=== PATIENT | female | born 1940 | race Caucasian/White ===

== ENCOUNTER 2018-03-03 15:10 | Emergency (ER) | payer OTHER, MEDICAID ==
[~2018-03-03] VITALS: Ht 172.7 cm; Wt 65.0 kg
[2018-03-03 15:35] VITALS: BP 127/61; PULSE 82; RESP 16; TEMP 98.2; O2SAT 97
--- NOTE | 2018-03-03 15:52 | PD ---
HPI Chief Complaint: Psychiatric Symptoms Time Seen by Provider: 15:37 Travel History International Travel<30 days: No Contact w/Intl Traveler<30days: No Traveled to known affect area: No History of Present Illness HPI This is a 77-year-old female who presents under a Brumfield act initiated at [facility]. She was medically cleared at [facility] and then transferred here for psychiatric evaluation. According to her paperwork the patient has had 3 ER visits in the past 4 days and today she told the physician that she saw her daughter kissing her ex- in the living room which caused her anxiety. Reportedly her daughter is not living in [place] at this time and therefore it is impossible. It was felt that she was having hallucinations as well. The patient is currently awake, alert. She does not recall why she was being seen at [facility]. She does report a history of rectal and uterine and bladder prolapse requiring surgery in March and therefore she currently has an indwelling Grijalva catheter. She has no medical complaints at this time. [facility] Past Medical History Cardiovascular Problems: Yes (HTN) ?: Not Social History Alcohol Use: No Tobacco Use: No Allergies-Medications (Allergen,Severity, Reaction): Coded Allergies: No Known Allergies (Unverified , 03/03/18) Reported Meds & Prescriptions Reported Meds & Active Scripts Active Reported Protonix (Pantoprazole Sodium) 40 Mg Tab 40 Mg PO BID Coreg (Carvedilol) 6.25 Mg Tab 6.25 Mg PO BID Ativan (Lorazepam) 1 Mg Tab 1 Mg PO Q8H PRN Review of Systems Except as stated in HPI: all other systems reviewed are Neg Physical Exam Narrative GENERAL: Pleasant well-developed well-nourished female no acute distress SKIN: Warm and dry. HEAD: Atraumatic. Normocephalic. EYES: Pupils equal and round. No scleral icterus. No injection or drainage. ENT: No nasal bleeding or discharge. Mucous membranes pink and moist. NECK: Trachea midline. No JVD. CARDIOVASCULAR: Regular rate and rhythm. No murmur appreciated. RESPIRATORY: No accessory muscle use. Clear to auscultation. Breath sounds equal bilaterally. GASTROINTESTINAL: Abdomen soft, non-tender, nondistended. Hepatic and splenic margins not palpable. Grijalva catheter bag noted. MUSCULOSKELETAL: No obvious deformities. NEUROLOGICAL: Awake and alert. No obvious cranial nerve deficits. Motor grossly within normal limits. Normal speech. Alert to person and place. She knows that the month is February but does not recall the year. PSYCHIATRIC: Appropriate mood and affect. Insight and judgment appear limited. Data Data Last Documented VS Vital Signs Date Time Temp Pulse Resp B/P (MAP) Pulse Ox O2 Delivery O2 Flow Rate FiO2 03/04/18 07:30 83 20 156/70 (98) 96 Room Air 03/03/18 15:35 98.2 Orders Orders Lorazepam Inj (Ativan Inj) (03/03/18 17:15) Diet Regular Basic (03/03/18 Dinner) Psych Screen (03/03/18 19:17) Lorazepam (Ativan) (03/03/18 23:30) Lorazepam (Ativan) (03/04/18 04:00) Diet Regular Basic (03/04/18 Breakfast) Ed Discharge Order (03/04/18 09:36) Acetaminophen (Tylenol) (03/04/18 09:45) MDM Medical Decision Making Medical Screen Exam Complete: Yes Emergency Medical Condition: Yes Medical Record Reviewed: Yes Differential Diagnosis Acute psychosis, adjustment reaction, dementia, delirium, encephalitis, UTI Narrative Course This is a 77-year-old female who is placed under Brumfield act at [facility] and sent here for psychiatric evaluation. She was medically cleared at [facility]. Mental health screening discussed with the patient. Psychiatric screen ordered. The Brumfield act has been lifted by psychiatry. She has no medical issues that would warrant further hospitalization. She is stable for discharge. Diagnosis Primary Impression: Medical clearance for psychiatric admission Med/Other Pt SpecificInfo: No Change to Meds Disposition: 01 DISCHARGE HOME Condition: Stable Jacob Saleh Mar 03, 2018 15:51
[2018-03-03] MEDS ORDERED: PROT40TA PO (16:05)
[2018-03-03] MEDS ORDERED: CARV6.25 PO (16:05)
[2018-03-03] MEDS ORDERED: LORA-474 PO (16:05)
[2018-03-03] MEDS ORDERED: LORazepam 2 MG/ML VIAL IM ONE (17:15)
[2018-03-03 17:29] VITALS: BP 109/63; PULSE 76; RESP 16; O2SAT 96
[2018-03-03 18:27] VITALS: BP 111/66; PULSE 73; RESP 18; O2SAT 98
[2018-03-03 23:28] VITALS: BP 127/63; PULSE 75; RESP 16; O2SAT 96
[2018-03-03] MEDS ORDERED: LORazepam 1 MG TAB PO ONE (23:30)
[2018-03-04] MEDS ORDERED: LORazepam 0.5 MG TAB PO ONE (04:00)
[2018-03-04 07:30] VITALS: BP 156/70; PULSE 83; RESP 20; O2SAT 96
[2018-03-04] MEDS ORDERED: ACETAMINOPHEN 500 MG CPLT PO ONE (09:45)
--- NOTE | 2018-03-04 13:34 | PD.PSY.CON ---
Provisional Diagnosis Admission Date History of Present Illness Service Psychiatry Consult Requested By ER Reason for Consult Psychiatry Primary Care Physician Willie Manuel M.D. HPI This is a 77-year-old woman, domiciled with her in the [place] , retired, without no previous psychiatric history, no previous suicidal attempts, who [facility] and then transferred here for psychiatric evaluation. According to her paperwork the patient has had 3 ER visits in the past 4 days and today she told the physician that she saw her daughter kissing her ex- in the living room which caused her anxiety. Reportedly her daughter is not living in [place] at this time and therefore it is impossible. It was felt that she was having hallucinations as well. The patient is currently awake, alert. She does not recall why she was being seen at [facility]. She does report a history of rectal and uterine and bladder prolapse requiring surgery in March and therefore she currently has an indwelling Grijalva catheter. She has no medical complaints at this time. On psychiatric evaluation patient is calm, cooperative and pleasant. Patient reports feeling okay, she has been under stress due to her bladder prolapse. She denies suicidal enemas ideation, she denies visual and auditory hallucinations. She is fully oriented 3. Past Family Social History Coded Allergies: No Known Allergies (Unverified , 03/03/18) Reported Medications Pantoprazole (Protonix) 40 Mg Tab, 40 MG PO BID for Reflux, #30 TAB 0 Refills 03/03/18 Carvedilol (Coreg) 6.25 Mg Tab, 6.25 MG PO BID, #60 TAB 0 Refills 03/03/18 Lorazepam (Ativan) 1 Mg Tab, 1 MG PO Q8H Y for ANXIETY AND/OR AGITATION, TAB 0 Refills 03/03/18 Physical Exam Vital Signs Vital Signs Date Time Temp Pulse Resp B/P (MAP) Pulse Ox O2 Delivery O2 Flow Rate FiO2 03/04/18 13:10 03/04/18 07:30 83 20 96 Room Air 03/03/18 15:35 98.2 I/O 03/04/18 03/04/18 03/05/18 08:00 16:00 00:00 Output Total 625 ml Balance -625 ml Mental Status Examination Appearance: Appropriate Consciousness: Alert Orientation: x4 Motor Activity: Normal gait Speech: Unremarkable Language: Adequate Fund of Knowledge: Adequate Attention and Concentration: Adequate Memory: Unremarkable Mood: Appropriate Affect: Appropriate Thought Process & Associations: Intact Thought Content: Appropriate Hallucination Type: None Delusion Type: None Suicidal Ideation: No Suicidal Plan: No Suicidal Intention: No Homicidal Ideation: No Homicidal Plan: No Homicidal Intention: No Insight: Adequate Judgment: Adequate Assessment & Plan Problem List: (1) Adjustment disorder with depressed mood ICD Codes: F43.21 - Adjustment disorder with depressed mood Assessment & Plan: The patient does not present any neuropsychiatric symptoms, such as depression, anxiety, carlos or psychosis, that require an immediate psychiatric intervention. Patient denies suicidal and was ideation, she denies visual and auditory hallucinations. Patient is psychiatrically cleared to continue medical care. Brumfield act will be lifted Assessment & Plan Estimated LOS: Feliciano Quispe MD Mar 04, 2018 13:34
== END 2018-03-04 13:32 | disposition home or self-care (01) ==
LOC: NEPD 15:10
DX: F43.21 Adjustment disorder with depressed mood (principal); I10 Essential (primary) hypertension
CPT/HCPCS: 96372; 99284; J2060

== ENCOUNTER 2019-01-17 16:01 | Observation (INO) ==
[2019-01-17 16:23] VITALS: TEMP 98.3
[2019-01-17 18:09] LABS: Baso % (Auto) 0.5 % (0.0-2.0); Eos # (Auto) 0.3 th/mm3 (0.0-0.4); Eos % (Auto) 5.8 % (0.0-4.0); Hematocrit 27.4 % (35.0-46.0); Hemoglobin 8.5 gm/dL (11.6-15.3); Lymph # (Auto) 1.2 th/mm3 (1.0-4.8); Lymph % (Auto) 24.6 % (9.0-44.0); Mean Corpuscular HGB Conc 31.2 % (32.0-36.0); Mean Corpuscular Hemoglobin 25.7 pg (27.0-34.0); Mean Corpuscular Volume 82.3 fL (80.0-100.0); Mean Platelet Volume 7.3 fL (7.0-11.0); Mono # (Auto) 0.3 th/mm3 (0.0-0.9); Mono % (Auto) 6.6 % (0.0-8.0); Neut # (Auto) 3.1 th/mm3 (1.8-7.7); Neut % (Auto) 62.5 % (16.0-70.0); Platelet Count 254 th/mm3 (150-450); Red Blood Count 3.33 mil/mm3 (4.00-5.30); Red Cell Distribution Width 21.4 % (11.6-17.2); White Blood Count 4.9 th/mm3 (4.0-11.0)
[2019-01-17 18:19] LABS: Chloride 104 meq/L (98-107); Potassium 4.3 meq/L (3.5-5.1); Sodium 136 meq/L (136-145)
[2019-01-17 18:22] LABS: Calcium 8.2 mg/dL (8.5-10.1)
[2019-01-17 18:23] LABS: Albumin 3.7 g/dL (3.4-5.0); Anion Gap 5 meq/L (5-15); Blood Urea Nitrogen 25 mg/dL (7-18); Glucose,Random 81 mg/dL (74-106)
[2019-01-17 18:26] LABS: Alanine Aminotransferase 13 U/L (10-53); Aspartate Aminotransferase 12 U/L (15-37); Glomerular Filtration Rate 40 mL/min (>89)
[2019-01-17 18:28] LABS: Total Protein 7.2 g/dL (6.4-8.2)
[2019-01-17 18:29] LABS: Alkaline Phosphatase 86 U/L (45-117)
[2019-01-17 18:38] LABS: Creatine Kinase 89 U/L (26-192)
--- NOTE | 2019-01-17 18:54 | ED ---
HPI General Chief complaint: Urogenital-Female Stated complaint: Trouble Urinating/Pain/Pressure/Seen yest Time Seen by Provider: 01/17/19 17:00 History of Present Illness HPI narrative: 78 female history of CHF here for evaluation of generalized weakness. Patient was here yesterday and was diagnosed with UTI and is currently taking Keflex day 2. She had low hemoglobin yesterday, she is back today because of feeling tired, lethargic and weak. She has no chest pain or shortness of breath. She has no neurological symptoms, denies any focal weakness or sensory loss. No other complaints. Related Data Home Medications Medication Instructions Recorded Confirmed carvedilol [Coreg] 6.25 mg PO BID 01/12/19 01/17/19 phenazopyridine [Pyridium] 100 mg PO TID 01/12/19 01/17/19 Previous Rx's Medication Instructions Recorded sulfamethoxazole-trimethoprim 1 tab PO BID 7 Days #14 tab 01/12/19 [Bactrim DS] cephalexin [Keflex] 500 mg PO Q6H 7 Days #28 cap 01/16/19 Allergies Allergy/AdvReac Type Severity Reaction Status Date / Time No Known Allergies Allergy Verified 01/17/19 16:23 Review of Systems ROS: all other systems reviewed are negative [facility] Social History Social History Substance History: No History of Abuse Smoking Status: Former smoker How Often Do You Have a Drink Containing Alcohol: Never Recent Travel in [facility] within the Last 8 Weeks: No Recent Out of Country Travel within the Last 8 Weeks: No Immunization History Tetanus Immunization: <5 Years Exam Narrative Exam Narrative: GENERAL: Alert and x3 no acute distress. SKIN: Focused skin assessment warm/dry. HEAD: Atraumatic. Normocephalic. EYES: Pupils equal and round. No scleral icterus. No injection or drainage. ENT: No nasal bleeding or discharge. Mucous membranes pink and moist. NECK: Trachea midline. No JVD. CARDIOVASCULAR: Regular rate and rhythm. No murmur appreciated. RESPIRATORY: No accessory muscle use. Clear to auscultation. Breath sounds equal bilaterally. GASTROINTESTINAL: Abdomen soft, non-tender, nondistended. Hepatic and splenic margins not palpable. MUSCULOSKELETAL: No obvious deformities. No clubbing. No cyanosis. No edema. NEUROLOGICAL: Awake and alert. No obvious cranial nerve deficits. Motor grossly within normal limits. Normal speech. PSYCHIATRIC: Appropriate mood and affect; insight and judgment normal. Course Initial Documented Vital Signs Temperature 98.3 F 01/17/19 16:18 Pulse Rate 58 L 01/17/19 16:18 Respiratory Rate 16 01/17/19 16:18 Blood Pressure 150/66 H 01/17/19 16:18 Pulse Oximetry 93 L 01/17/19 16:18 Last Documented Vital Signs Temperature 98.3 F 01/17/19 16:18 Pulse Rate 55 L 01/17/19 19:00 Respiratory Rate 18 01/17/19 19:00 Blood Pressure 161/53 H 01/17/19 19:00 Pulse Oximetry 94 L 01/17/19 19:00 Medical Decision Making MDM Narrative Medical decision making narrative: 78 female here for evaluation of generalized weakness and feeling easily tired. She was here yesterday for UTI and currently on day 2 of Keflex p.o. Hemoglobin today is 8.5, I tried to do Hemoccult but there was no sample in the rectum. She had colonoscopy done within the last 2 years and she states it was normal. She has hypoxia here in the ER. She has history of CHF. She has elevated d-dimer. She declined a CTA of the chest and wants to go home to be with her as she flew all the way down from [place] to see him. I explained to the patient the possibility of having PE and that it is very dangerous to leave without finishing the workup but patient declined and wants to go home. Patient will sign AMA. AMA: The risks of leaving against medical advice without further evaluation treatment were discussed with the patient. These risks include cardiac dysfunction, cardiac dysrhythmia, possible heart attack, possible stroke or . The patient indicated understanding of these risks and appeared to have the capacity to make this decision. Medical Screen Exam Complete: Yes Emergency Medical Condition: Yes Lab Data Result diagrams: 01/17/19 17:47 01/17/19 17:47 Lab Results 01/17/19 01/17/19 01/17/19 Range/Units 17:47 17:47 17:47 CBC w Diff Auto diff final WBC 4.9 (4.0-11.0) th/mm3 RBC 3.33 L (4.00-5.30) mil/mm3 Hgb 8.5 L (11.6-15.3) gm/dL Hct 27.4 L (35.0-46.0) % MCV 82.3 (80.0-100.0) fL MCH 25.7 L (27.0-34.0) pg MCHC 31.2 L (32.0-36.0) % RDW 21.4 H (11.6-17.2) % Plt Count 254 (150-450) th/mm3 MPV 7.3 (7.0-11.0) fL Neut % (Auto) 62.5 (16.0-70.0) % Lymph % (Auto) 24.6 (9.0-44.0) % [place] % (Auto) 6.6 (0.0-8.0) % Eos % (Auto) 5.8 H (0.0-4.0) % Baso % (Auto) 0.5 (0.0-2.0) % Neut # (Auto) 3.1 (1.8-7.7) th/mm3 Lymph # (Auto) 1.2 (1.0-4.8) th/mm3 [place] # (Auto) 0.3 (0.0-0.9) th/mm3 Eos # (Auto) 0.3 (0.0-0.4) th/mm3 Baso # (Auto) 0.0 (0.0-0.2) th/mm3 WBC Differential . Differential Comment . APTT (23.4-31.7) sec D-Dimer Quant (PE/DVT) (0.00-0.50) mg/L FEU Sodium (136-145) meq/L Potassium (3.5-5.1) meq/L Chloride (98-107) meq/L Carbon Dioxide (21.0-32.0) meq/L Anion Gap (5-15) meq/L BUN (7-18) mg/dL Creatinine (0.50-1.00) mg/dL Estimated GFR (>89) mL/min Random Glucose (74-106) mg/dL Calcium (8.5-10.1) mg/dL Total Bilirubin (0.2-1.0) mg/dL Direct Bilirubin 0.1 (0.0-0.2) mg/dL AST (15-37) U/L ALT (10-53) U/L Alkaline Phosphatase (45-117) U/L Total Creatine Kinase (26-192) U/L Troponin I (0.02-0.05) ng/mL B-Natriuretic Peptide 309 H (0-100) pg/mL Total Protein (6.4-8.2) g/dL Albumin (3.4-5.0) g/dL 01/17/19 01/17/19 01/17/19 Range/Units 17:47 17:47 17:47 CBC w Diff WBC (4.0-11.0) th/mm3 RBC (4.00-5.30) mil/mm3 Hgb (11.6-15.3) gm/dL Hct (35.0-46.0) % MCV (80.0-100.0) fL MCH (27.0-34.0) pg MCHC (32.0-36.0) % RDW (11.6-17.2) % Plt Count (150-450) th/mm3 MPV (7.0-11.0) fL Neut % (Auto) (16.0-70.0) % Lymph % (Auto) (9.0-44.0) % [place] % (Auto) (0.0-8.0) % Eos % (Auto) (0.0-4.0) % Baso % (Auto) (0.0-2.0) % Neut # (Auto) (1.8-7.7) th/mm3 Lymph # (Auto) (1.0-4.8) th/mm3 [place] # (Auto) (0.0-0.9) th/mm3 Eos # (Auto) (0.0-0.4) th/mm3 Baso # (Auto) (0.0-0.2) th/mm3 WBC Differential Differential Comment APTT 27.9 (23.4-31.7) sec D-Dimer Quant (PE/DVT) 1.36 H (0.00-0.50) mg/L FEU Sodium 136 (136-145) meq/L Potassium 4.3 (3.5-5.1) meq/L Chloride 104 (98-107) meq/L Carbon Dioxide 27.0 (21.0-32.0) meq/L Anion Gap 5 (5-15) meq/L BUN 25 H (7-18) mg/dL Creatinine 1.30 H (0.50-1.00) mg/dL Estimated GFR 40 L (>89) mL/min Random Glucose 81 (74-106) mg/dL Calcium 8.2 L (8.5-10.1) mg/dL Total Bilirubin 0.2 (0.2-1.0) mg/dL Direct Bilirubin (0.0-0.2) mg/dL AST 12 L (15-37) U/L ALT 13 (10-53) U/L Alkaline Phosphatase 86 (45-117) U/L Total Creatine Kinase 89 (26-192) U/L Troponin I Less than 0.02 L (0.02-0.05) ng/mL B-Natriuretic Peptide (0-100) pg/mL Total Protein 7.2 (6.4-8.2) g/dL Albumin 3.7 (3.4-5.0) g/dL Imaging Data Radiologist's impression: Chest X-Ray 01/17/19 18:56 CONCLUSION: Cardiomegaly. Suspected mild patchy density seen in the right lower lung. The patient is scheduled for a CT pulmonary angiogram. Discharge Plan Discharge Disposition Patient Disposition: 07 Against Medical Advice Discharge Condition Condition: Stable Discharge Order Discharge Orders: AMA Discharge (Routine); Ordered 01/17/19 Ordered By: Adolfo Weldon ED Use Only Admit Order (Routine); Ordered 01/17/19 Ordered By: Adolfo Weldon Physicians Team ED Provider: Adolfo Weldon Primary Care Provider: Primary Care Mira Allen Attending Provider: Yoan Saunders Discharge Interventions Interventions: Vital Signs Last Done: 01/17/19 19:00 Status ED Status: Admitted Observation Patient
--- NOTE | 2019-01-17 19:12 | XR ---
EXAM DATE: 01/17/2019 7:09 PM EST AGE/SEX: 78 years / Female INDICATIONS: Pain and pressure in chest for 2 days. CLINICAL DATA: This is the patient's initial encounter. Patient reports that signs and symptoms have been present for 2 days and indicates a pain score of 7/10. MEDICAL/SURGICAL HISTORY: None. None. COMPARISON: No prior exams available for comparison. FINDINGS: The heart size is enlarged. There some mild patchy density seen in the right lower lung. The left cristina g is grossly clear. The costophrenic angles are clear. CONCLUSION: Cardiomegaly. Suspected mild patchy density seen in the right lower lung. The patient is scheduled for a CT pulmona ry angiogram. Electronically signed by: Casimiro Looney MD Board Certified Radiologist 01/17/2019 7:11 PM EST
[2019-01-17 19:42] VITALS: BP 161/53; PULSE 55; RESP 18; O2SAT 94
[2019-01-17] MEDS ORDERED: Carvedilol 6.25 MG Tablet PO SCH (21:00)
== END 2019-01-17 20:03 | disposition left against medical advice (07) ==
LOC: PHEDA 16:01 → PHED 16:01 → PHEDA 20:06
PROVIDERS: ADMIT Hospitalist; ATTEND Hospitalist
DX: Z87.891 Personal history of nicotine dependence; I50.9 Heart failure, unspecified; N39.0 Urinary tract infection, site not specified; D64.9 Anemia, unspecified
CPT/HCPCS: G0378